=== PATIENT | female | born 1960 | race Caucasian/White ===

== ENCOUNTER 2017-11-14 02:56 | Inpatient (IN) | payer BC ==
[2017-11-14] MEDS ORDERED: FAMOTIDINE 20 MG/50 ML IVPB 20 MG/50 ML MG IVPB ONE ×2 (03:10→03:27)
[2017-11-14] MEDS ORDERED: MAG HYDROX/AL HYDROX/SIMETH 30 ML UNIT-DOSE CUP PO ONE (03:19)
[2017-11-14] MEDS ORDERED: morphine CARPU-JECT 4 MG/1 ML DISP.SYRIN IVPUSH ONE ×3 (03:19→05:05)
[2017-11-14] MEDS ORDERED: SODIUM CHLORIDE 0.9% 500 ML INFUS.BAG IV ONE (03:19)
[2017-11-14] MEDS ORDERED: ONDANSETRON 4 MG/2 ML VIAL IVPUSH ONE (03:19)
[2017-11-14] MEDS ORDERED: MAG HYDROX/AL HYDROX/SIMETH 30 ML UNIT-DOSE CUP ONE (03:27)
[2017-11-14] MEDS ORDERED: ONDANSETRON 4 MG/2 ML VIAL ONE (03:27)
[2017-11-14] MEDS ORDERED: morphine SULFATE 4 MG/ML VIAL ONE ×2 (03:27→04:07)
--- NOTE | 2017-11-14 03:28 | PDOC ---
History of Present Illness - General Chief Complaint: Pain, Acute Stated Complaint: ABDOMINAL PAIN Time Seen by Provider: 11/14/17 03:10 History Source: Patient Exam Limitations: No Limitations - History of Present Illness Initial Comments: 11/14/17 03:21 57 YOF with h/o HTN presenting with acute onset of RUQ and epigastric abdominal crampy pain x 6 hours, beginning 8pm. a/w nausea and NBNB emesis; chronic loose brown nonbloody stools. +dizziness; no fevers or chills. similar symptoms previously x years; visited PMD last week with normal blood work. awaiting to see GI specialist for her abdominal pain. +PSH includes C sections and appy; + smoker; no drugs or ETOH. denies travel or food precipitants. 11/14/17 03:31 Past History - Past Medical History Allergies/Adverse Reactions: Allergies Allergy/AdvReac Type Severity Reaction Status Date / Time No Known Allergies Allergy Verified 11/14/17 03:00 Home Medications: Ambulatory Orders Metoprolol Tartrate [Lopressor -] 50 mg PO DAILY 11/14/17 COPD: No HTN: Yes - Surgical History Appendectomy: Yes - Suicide/Smoking/Psychosocial Hx Smoking History: Current every day smoker Have you smoked in the past 12 months: Yes Number of Cigarettes Smoked Daily: 5 Information on smoking cessation initiated: Yes 'Breaking Loose' booklet given: 11/14/17 Hx Alcohol Use: No Drug/Substance Use Hx: No Substance Use Type: None Review of Systems - Review of Systems Able to Perform ROS?: Yes Comments:: 11/14/17 03:28 GENERAL/CONSTITUTIONAL: No fever or chills. No weakness. no sweats. HEAD, EYES, EARS, NOSE AND THROAT: No sore throat or mouth pain. No difficulty swallowing.. CARDIOVASCULAR: No chest pain or palpitations, syncope or edema. RESPIRATORY: No SOB, cough GASTROINTESTINAL + abdominal pain, diarrhea nausea/vomiting.. No bloody stools. GENITOURINARY: No hematuria, dysuria, frequency, urgency or other changes. MUSCULOSKELETAL: No joint or muscle swelling or pain. No neck or back pain. SKIN: No rash or changes in skin color or lesions. NEUROLOGIC: No headache HEMATOLOGIC/LYMPHATIC: No anemia, easy bruising/bleeding, or history of blood clots. ALLERGIC/IMMUNOLOGIC: No allergies All other systems reviewed and negative, or as documented in HPI. *Physical Exam - Vital Signs Last Vital Signs Temp Pulse Resp BP Pulse Ox 98.9 F 94 H 16 170/105 99 11/14/17 03:02 11/14/17 03:02 11/14/17 03:02 11/14/17 03:02 11/14/17 03:02 - Physical Exam Comments: 11/14/17 03:28 General: Well appearing, awake and alert, mild distress 2/2 pain HEENT: NCAT, PERRL, EOMI, clear conjunctiva, anicteric, moist mucus membranes, clear oropharynx Neck: neck supple, FROM, no JVD, LAD or masses Lungs: CTAB, normal and even respirations, no respiratory distress Heart: RRR, 2+ peripheral pulses throughout, no peripheral edema Abdomen: soft, obese, lower abdominal surgical scars; +RUQ and epigastric TTP, nonperitoneal Back: nontender, normal inspection and ROM MSK: no edema, CALDERON x4, ROM intact. Neuro: alert Skin: warm and well perfused, cap refill <2 sec, normal color for ethnicity; no rash ED Treatment Course - LABORATORY CBC & Chemistry Diagram: 11/14/17 03:25 11/14/17 03:38 - RADIOLOGY Radiology Studies Ordered: Category Date Time Status GALLBLADDER US [US] Stat Ultrasound 11/14/17 03:20 Ordered Medical Decision Making - Medical Decision Making 11/14/17 05:46 DDx abdominal pain: GERD, PUD, esophageal spasm, pancreatitis, hepatitis, constipation, colitis, gastroenteritis, cholecystitis, symptomatic cholelithiasis, choledocholithiasis, hernia Vital signs reviewed, wnl. No fever. Plan: CBC, CMP, lipase; GI cocktail, pepcid, zofran, morphine, IVF; RUQ sono to r/o cholelithiasis vs cholecystitis. laboratory results and imaging reviewed, basic labs and lytes notable for leukocytosis 12.8K, UA unremarkable. RUQ sono: large gallstone at the neck, +GB wall thickening noted, sonographic and physical [place] present, highly suspicious for acute cholecysitits. With clinical exam and findings, admit for acute nabila, IV abx Zosyn and additional analgesia. 520AM: spoke with surgeon personal injury specialist, Dr Alcaraz, surgery consult in place. may need to be deferred to daytime team and OR booking. Admitted to Dr. Velazquez, hospitalist, NPO, abx, pain control and operative management. spoke with pt regarding admission and plan, in agreement, questions answered. 11/14/17 05:48 *DC/Admit/Observation/Transfer Diagnosis at time of Disposition: Acute cholecystitis - Discharge Dispostion Condition at time of disposition: Stable Decision to Admit order: Yes Decision to Admit order Date/Time: 11/14/17 520AM - Referrals Referrals: Minerva Olsen [Primary Care Provider] - - Patient Instructions - Post Discharge Activity
[2017-11-14 04:03] LABS: BASO % 0.3 % (0-2.0); EOS % 0.2 % (0-4.5); HEMATOCRIT 45.1 % (32.4-45.2); HEMOGLOBIN 15.4 GM/dL (10.7-15.3); LYMPH % 15.9 % (8-40); MCH 30.6 pg (25.7-33.7); MCHC 34.2 g/dl (32.0-36.0); MEAN CELL VOLUME 89.5 fl (80-96); MEAN PLT VOLUME 9.4 fl (7.5-11.1); NEUT % 79.6 % (42.8-82.8); PLATELET COUNT 282 K/MM3 (134-434); RBC 5.04 M/mm3 (3.60-5.2); RDW 13.8 % (11.6-15.6); WHITE BLOOD COUNT 12.8 K/mm3 (4.0-10.0)
[2017-11-14 04:07] LABS: URINE APPEARANCE CLEAR; URINE BILIRUBIN NEGATIVE (<2.0 mg/dL); URINE COLOR STRAW; URINE GLUCOSE (UA) NEGATIVE (NEGATIVE); URINE KETONE NEGATIVE (NEGATIVE); URINE NITRITE NEGATIVE (NEGATIVE); URINE PROTEIN NEGATIVE (NEGATIVE); URINE UROBILINOGEN NEGATIVE mg/dL (0.2-1.0)
[2017-11-14 04:11] LABS: URINE LEUK ESTERASE 2+ (NEGATIVE)
[2017-11-14 04:12] LABS: EPI CELLS RARE /HPF (FEW)
[2017-11-14 04:25] LABS: ALBUMIN 4.3 g/dl (3.4-5.0); ALK PHOS 106 U/L (45-117); ANION GAP 8 (8-16); BILIRUBIN,TOTAL 0.3 mg/dL (0.2-1.0); BLOOD UREA NITROGEN 9 mg/dL (7-18); CALCIUM 9.8 mg/dL (8.5-10.1); CHLORIDE 104 mmol/L (98-107); CO2 26 mmol/L (21-32); GLUCOSE,RANDOM 135 mg/dL (74-106); LIPASE 220 U/L (73-393); POTASSIUM 3.7 mmol/L (3.5-5.1); SGOT/AST 23 U/L (15-37); SGPT/ALT 31 U/L (12-78); SODIUM 138 mmol/L (136-145); TOT PROT 8.6 g/dl (6.4-8.2)
[2017-11-14] MEDS ORDERED: PIPERACILLIN/TAZOB 4.5 GM 4.5 GM in DEXTROSE 5%-WATER 100 ML IVPB ONE (04:58)
[2017-11-14] MEDS ORDERED: PIPERACILLIN/TAZOBACTAM 4.5 GM VIAL IVPB ONE (05:01)
[2017-11-14] MEDS ORDERED: HYDROmorphone HCL CARPU-JECT 1 MG/1 ML DISP.SYRIN IVPUSH ONE (05:12)
[2017-11-14] MEDS ORDERED: HYDROmorphone HCL CARPU-JECT 1 MG/1 ML DISP.SYRIN ONE (05:13)
[2017-11-14] MEDS ORDERED: morphine CARPU-JECT 2 MG/1 ML DISP.SYRIN IVPUSH PRN (05:23)
[2017-11-14] MEDS ORDERED: SODIUM CHLORIDE 1,000 ML IV SCH (05:30)
--- NOTE | 2017-11-14 07:45 | HP ---
CHIEF COMPLAINT: abdominal pain PCP: Dr Olsen HISTORY OF PRESENT ILLNESS: Patient is a 57 obese female, past medical history of asthma (exacerbated in the spring) and hypertension. Patient reports with intermittent in epigastric pain worsening after eating for the past several months. Patient reports yesterday, November 13 2017, evening she developed sharp epigastric pain with nausea and vomiting. Patient denies any fevers or chills. ER course was notable for: (1)chest x-ray, no acute pathology, no infilitrate, no effusion noted. 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 Smoking: few cigarettes occasionally Alcohol:social Drugs: occasional marijuana use Family History: noncontributory Allergies No Known Allergies Allergy (Verified 11/14/17 03:00) HOME MEDICATIONS: Home Medications Medication Instructions Recorded Metoprolol Tartrate [Lopressor -] 50 mg PO DAILY 11/14/17 REVIEW OF SYSTEMS CONSTITUTIONAL: present: malaise, loss of appetite, Absent: fever, chills, diaphoresis, generalized weakness, weight change HEENT: Absent: rhinorrhea, nasal congestion, throat pain, throat swelling, difficulty swallowing, mouth swelling, ear pain, eye pain, visual changes CARDIOVASCULAR: Absent: chest pain, syncope, palpitations, irregular heart rate, lightheadedness , peripheral edema RESPIRATORY: Absent: cough, shortness of breath, dyspnea with exertion, orthopnea, wheezing, stridor, hemoptysis GASTROINTESTINAL: present:abdominal pain, abdominal distension, nausea, vomiting, Absent: diarrhea, constipation, melena, hematochezia GENITOURINARY: Absent: dysuria, frequency, urgency, hesitancy, hematuria, flank pain, genital pain MUSCULOSKELETAL: Absent: myalgia, arthralgia, joint swelling, back pain, neck pain SKIN: Absent: rash, itching, pallor HEMATOLOGIC/IMMUNOLOGIC: Absent: easy bleeding, easy bruising, lymphadenopathy, frequent infections ENDOCRINE: Absent: unexplained weight gain, unexplained weight loss, heat intolerance, cold intolerance NEUROLOGIC: Absent: headache, focal weakness or paresthesias, dizziness, unsteady gait, seizure, mental status changes, bladder or bowel incontinence PSYCHIATRIC: Absent: anxiety, depression, suicidal or homicidal ideation, hallucinations. PHYSICAL EXAMINATION Vital Signs - 24 hr 11/14/17 11/14/17 11/14/17 03:02 04:16 06:00 Temperature 98.9 F Pulse Rate 94 H Pulse Rate [ 95 H Right Radial] Respiratory 16 16 Rate Blood Pressure 170/105 Blood Pressure 177/108 155/84 [Left Arm] O2 Sat by Pulse 99 98 Oximetry (%) GENERAL: Awake, alert, and fully oriented, in no acute distress. HEAD: Normal with no signs of trauma. EYES: Pupils equal, round and reactive to light, extraocular movements intact, sclera anicteric, conjunctiva clear. No lid lag. EARS, NOSE, THROAT: Ears normal, nares patent, oropharynx clear without exudates. Moist mucous membranes. NECK: Normal range of motion, supple without lymphadenopathy, JVD, or masses. LUNGS: Breath sounds equal, clear to auscultation bilaterally. No wheezes, and no crackles. No accessory muscle use. HEART: Regular rate and rhythm, normal S1 and S2 without murmur, rub or gallop. ABDOMEN: Soft, tenderness noted to the right upper quadrant upon deep palpation, not distended, normoactive bowel sounds, no guarding, no rebound, no masses. No hepatomegaly or splenomegaly. MUSCULOSKELETAL: Normal range of motion at all joints. No bony deformities or tenderness. No CVA tenderness. UPPER EXTREMITIES: 2+ pulses, warm, well-perfused. No cyanosis. No clubbing. No peripheral edema. LOWER EXTREMITIES: 2+ pulses, warm, well-perfused. No calf tenderness. No peripheral edema. NEUROLOGICAL: Cranial nerves II-XII intact. Normal speech. Normal gait. PSYCHIATRIC: Cooperative. Good eye contact. Appropriate mood and affect. SKIN: Warm, dry, normal turgor, no rashes or lesions noted, normal capillary refill. Laboratory Results - last 24 hr 11/14/17 11/14/17 11/14/17 03:25 03:38 03:45 WBC 12.8 H RBC 5.04 Hgb 15.4 H Hct 45.1 MCV 89.5 MCH 30.6 MCHC 34.2 RDW 13.8 Plt Count 282 MPV 9.4 Absolute Neuts (auto) 10.2 Neutrophils % 79.6 Lymphocytes % 15.9 Monocytes % 4.0 Eosinophils % 0.2 Basophils % 0.3 Nucleated RBC % 0 Sodium 138 Potassium 3.7 Chloride 104 Carbon Dioxide 26 Anion Gap 8 BUN 9 Creatinine 1.0 Creat Clearance w eGFR 56.75 Random Glucose 135 H Calcium 9.8 Total Bilirubin 0.3 AST 23 ALT 31 Alkaline Phosphatase 106 Total Protein 8.6 H Albumin 4.3 Lipase 220 Urine Color Straw Urine Appearance Clear Urine pH 5.0 Ur Specific [place] 1.005 Urine Protein Negative Urine Glucose (UA) Negative Urine Ketones Negative Urine Blood 1+ H Urine Nitrite Negative Urine Bilirubin Negative Urine Urobilinogen Negative Ur Leukocyte Esterase 2+ H Urine WBC (Auto) 9 Urine RBC (Auto) <1 Ur Epithelial Cells Rare ASSESSMENT/PLAN: 1) GI acute cholecystitis - abdomen Review Significant for Acute Calculus Cholecystitis, - leukocytosis noted, WBCs 12.8, no bandemia noted, patient afebrile, monitor WBC and fever curve. - strict monitoring of LFTs noted transaminitis noted amylase lipase WNL, trend liver enzymes - patient reports inadequate pain relief with morphine, will change to Dilaudid 1 mg IV piggyback every 6 hours - Continue Zosyn appreciate ID input for antibiotic approval - appreciate general surgeon input, Dr. Alcaraz 2) cardiovascular Hypertension - continue home dose Lopressor, blood pressure above ago, secondary to pain, close monitoring vital signs every 4 hours F/E/N - nothing by mouth---> IV fluids - replete electrolytes when necessary PPX - SCDs - OOB - Pepcid - hold chemical AC, mechanical AC only dispo: pt requires inpatient admission Visit type - Emergency Visit Emergency Visit: Yes ED Registration Date: 11/14/17 Care time: The patient presented to the Emergency Department on the above date and was hospitalized for further evaluation of their emergent condition. - New Patient This patient is new to me today: Yes Date on this admission: 11/15/17 - Critical Care Critical Care patient: No Hospitalist Screening - Colonoscopy Questionnaire Colonoscopy Questionnaire: Colonoscopy Questionnaire - Patient: 50 - 75 years old and never had a screening colonoscopy: Yes History of colon or rectal polyps, or CA: No History of IBD, Crohn's disease or UC: No History of abdominal radiation therapy as a child: No - Relative: 1 with colon or rectal CA, or polyps at age 60 or younger: No Colon or rectal CA diagnosed at age 45 or younger: No Multiple relatives with colon or rectal CA: No - Outcome: Screening Result: Positive Screen
[2017-11-14] MEDS: ONDANSETRON 4 MG/2 ML VIAL IVPUSH PRN ×2 (08:11→13:45)
[2017-11-14] MEDS: HYDROmorphone HCL CARPU-JECT 2 MG/1 ML DISP.SYRIN IVPB PRN ×3 (08:11→21:22)
[2017-11-14 08:15] LABS: ACTIVATED PTT 29.8 SECONDS (25.2-36.5)
[2017-11-14 08:35] LABS: INR 1.08 (0.82-1.09); PROTHROMBIN TIME (PATIENT) 12.1 SEC (10.2-13.0)
[2017-11-14] MEDS ORDERED: ACETAMINOPHEN 325 MG TABLET (FP) PO PRN (08:51)
[2017-11-14 09:07] VITALS: BMI 30.5
[2017-11-14] MEDS ORDERED: HEPARIN NA (PORCINE) 5,000 UNITS/ML 1ML VIAL SQ SCH (10:00)
[2017-11-14] MEDS ORDERED: PIPERACILLIN/TAZOB 3.375 GM 3.375 GM/50 ML BAG IVPB SCH ×3 (10:00)
[2017-11-14] MEDS: SODIUM CHLORIDE 0.9%/KCL 20 MEQ/1,000 ML INFUS.BAG IV SCH (10:01)
[2017-11-14] MEDS: FAMOTIDINE 20 MG/50 ML IVPB 20 MG/50 ML MG IVPB SCH ×2 (10:05→21:22)
[2017-11-14] MEDS: METOPROLOL TARTRATE 50 MG TABLET (FP) PO SCH (10:05)
--- NOTE | 2017-11-14 13:54 | SPA.PREOP ---
- PRE-OP NOTE Dx: Acute Cholecystitis Planned Procedure: Laprascopic cholecystectomy, possible open Surgeon: Jim Alcaraz Consent: To be obtained by surgeon risks, benefits and alternatives explained to patient and or health care proxy. Last Vital Signs Temp Pulse Resp BP Pulse Ox 98.1 F 92 H 18 145/74 98 11/14/17 09:40 11/14/17 09:40 11/14/17 09:40 11/14/17 09:40 11/14/17 06:16 Lab Results WBC 12.8 K/mm3 (4.0-10.0) H 11/14/17 03:25 RBC 5.04 M/mm3 (3.60-5.2) 11/14/17 03:25 Hgb 15.4 GM/dL (10.7-15.3) H 11/14/17 03:25 Hct 45.1 % (32.4-45.2) 11/14/17 03:25 MCV 89.5 fl (80-96) 11/14/17 03:25 MCHC 34.2 g/dl (32.0-36.0) 11/14/17 03:25 RDW 13.8 % (11.6-15.6) 11/14/17 03:25 Plt Count 282 K/MM3 (134-434) 11/14/17 03:25 Sodium 138 mmol/L (136-145) 11/14/17 03:38 Potassium 3.7 mmol/L (3.5-5.1) 11/14/17 03:38 Chloride 104 mmol/L (98-107) 11/14/17 03:38 Carbon Dioxide 26 mmol/L (21-32) 11/14/17 03:38 Anion Gap 8 (8-16) 11/14/17 03:38 BUN 9 mg/dL (7-18) 11/14/17 03:38 Creatinine 1.0 mg/dL (0.55-1.02) 11/14/17 03:38 Random Glucose 135 mg/dL (74-106) H 11/14/17 03:38 Calcium 9.8 mg/dL (8.5-10.1) 11/14/17 03:38 Blood Type O POSITIVE 11/14/17 07:40 Antibody Screen Negative 11/14/17 07:25 INR 1.08 (0.82-1.09) 11/14/17 07:25 - ASSESSMENT/PLAN Problem List - Problems (1) Acute cholecystitis Assessment/Plan: 1. NPO after midnight except po meds 2. GI/DVT PPX 3. Medical optimization / clearance Code(s): K81.0 - ACUTE CHOLECYSTITIS Visit type - Case Type Case Type: ED Admission - Emergency Emergency Visit: Yes ED Registration Date: 11/14/17 Care time: The patient presented to the Emergency Department on the above date and was hospitalized for further evaluation of their emergent condition.
--- NOTE | 2017-11-14 16:06 | CONSULT ---
- Consultation REQUESTING PROVIDER: CONSULT REQUEST: We have been asked to surgically evaluate this patient for epigastric/RUQ pain. PCP:Ashleigh Ruiz HISTORY OF PRESENT ILLNESS: The patient is a 57 yo female who presented yesterday for epigastric/RUQ pain. She has had similar symptoms in the past but this time the pain didn't improve. The patient was scheduled today to be seen for this problem, she has been experiencing symptoms for several months. She had some associated nausea and non-bloody emesis. Her nausea and pain have improved since admission. PMHx: HTN, enlarged heart with intermittent palpitations PSHx: appendectomy/ c section x2 Home Medications Medication Instructions Recorded Metoprolol Tartrate [Lopressor -] 50 mg PO DAILY 11/14/17 Allergies Allergy/AdvReac Type Severity Reaction Status Date / Time No Known Allergies Allergy Verified 11/14/17 03:00 REVIEW OF SYSTEMS: CONSTITUTIONAL: Absent: fever, chills CARDIOVASCULAR: Absent: chest pain, palpitations RESPIRATORY: Absent: cough, shortness of breath GASTROINTESTINAL: Present: abdominal pain, nausea, vomiting, diarrhea (non-bloody) GENITOURINARY: Absent: dysuria, hematuria MUSCULOSKELETAL: present: bilateral knee pain(had cortisone shots in the past) HEMATOLOGIC/IMMUNOLOGIC: Absent: easy bleeding, easy bruising NEUROLOGIC: Present: Sinus headache, seizure PHYSICAL EXAM: GENERAL: Awake, alert, and fully oriented, in no acute distress. HEAD: Normal with no signs of trauma. EYES: sclera anicteric, conjunctiva clear. NECK: Normal ROM, supple without lymphadenopathy LUNGS: Clear to auscultation bilat anteriorly. No wheezes, and no crackles. HEART: Regular rate and rhythm. No murmurs ABDOMEN: Soft, not distended, epigastric/RUQ tenderness with palpation. No murphys, no guarding. LOWER EXTREMITIES: 2+ pulses, warm, well-perfused. No calf tenderness. No peripheral edema. NEUROLOGICAL: Normal speech, gait not observed. 5/5 dorsiflexion/plantar flexion /EHL b/l PSYCH: Cooperative. Good eye contact. Appropriate mood and affect. Vital Signs Temperature 98.2 F 11/14/17 14:00 Pulse Rate 67 11/14/17 14:00 Respiratory Rate 18 11/14/17 14:00 Blood Pressure 153/76 11/14/17 14:00 O2 Sat by Pulse Oximetry (%) 98 11/14/17 06:16 Lab Results WBC 12.8 K/mm3 (4.0-10.0) H 11/14/17 03:25 RBC 5.04 M/mm3 (3.60-5.2) 11/14/17 03:25 Hgb 15.4 GM/dL (10.7-15.3) H 11/14/17 03:25 Hct 45.1 % (32.4-45.2) 11/14/17 03:25 MCV 89.5 fl (80-96) 11/14/17 03:25 MCHC 34.2 g/dl (32.0-36.0) 11/14/17 03:25 RDW 13.8 % (11.6-15.6) 11/14/17 03:25 Plt Count 282 K/MM3 (134-434) 11/14/17 03:25 Sodium 138 mmol/L (136-145) 11/14/17 03:38 Potassium 3.7 mmol/L (3.5-5.1) 11/14/17 03:38 Chloride 104 mmol/L (98-107) 11/14/17 03:38 Carbon Dioxide 26 mmol/L (21-32) 11/14/17 03:38 Anion Gap 8 (8-16) 11/14/17 03:38 BUN 9 mg/dL (7-18) 11/14/17 03:38 Creatinine 1.0 mg/dL (0.55-1.02) 11/14/17 03:38 Random Glucose 135 mg/dL (74-106) H 11/14/17 03:38 Calcium 9.8 mg/dL (8.5-10.1) 11/14/17 03:38 Blood Type O POSITIVE 11/14/17 07:40 Antibody Screen Negative 11/14/17 07:25 INR 1.08 (0.82-1.09) 11/14/17 07:25 US: gallstone with GB wall thickening. CBD 0.6cm Problem List - Problems (1) Acute cholecystitis Assessment/Plan: Pt with acute cholecystitis-gallstones D/w Dr. Alcaraz and pt scheduled for a lap nabila tomorrow Medical clearance Continue npo/iv hydraton. Pt with nausea IV abx-Zosyn Code(s): K81.0 - ACUTE CHOLECYSTITIS
[2017-11-14] MEDS: PIPERACILLIN/TAZOB 3.375 GM 3.375 GM/50 ML BAG IVPB SCH (17:16)
--- NOTE | 2017-11-14 18:48 | PN ---
Progress Note (short form) - Note Progress Note: Attending Surgeon Patient seen and evaluated; chart reviewed; agree w/ a/p as outlined by JARET Nguyen; for lap nabila possible open in AM; r/b/t/a/'s d/w the patient who wishes to proceed; ifomed consent to be obtained. Jim Alcaraz MD FACS
--- NOTE | 2017-11-14 18:56 | PN ---
Progress Note (short form) - Note Progress Note: ID Consult dictated Acute cholecystitis Leukocytosis Await c/s Empiric zosyn For cholecystectomy am
[2017-11-15] MEDS: PIPERACILLIN/TAZOB 3.375 GM 3.375 GM/50 ML BAG IVPB SCH ×2 (02:14→11:40)
[2017-11-15] MEDS ORDERED: BUPIVACAINE HCL/PF 0.5% (5MG/ML) 10 ML VIAL ONE ×2 (07:19→07:56)
--- NOTE | 2017-11-15 07:19 | CONS ---
DATE OF CONSULTATION: 11/14/2017 HISTORY OF PRESENT ILLNESS: The patient is a 57-year-old female who was evaluated for abdominal pain. She was admitted to the hospital on November 13, 2017 with worsening epigastric and right upper quadrant abdominal pain. She reports that over the past 1 month or so, she has had episodes of right upper quadrant and epigastric pain, which resolved spontaneously. This time, however, the pain became more severe and was associated with nausea and vomiting. She presented to the hospital where an ultrasound showed a 2.7-cm gallstone at the gallbladder neck with thickened gallbladder wall. She was empirically treated with Zosyn. She was seen in consultation by Surgery and is scheduled to have a laparoscopic cholecystectomy. At the present time, she is comfortable at rest. She has episodic epigastric and right upper quadrant abdominal pain. She denies any recurrent nausea or vomiting. No fever or chills. Her last bowel movement was 1 day prior to admission. PAST MEDICAL HISTORY: Positive for hypertension, asthma. PAST SURGICAL HISTORY: Status post section, appendectomy. ALLERGIES: No known allergies. MEDICATIONS: Pepcid, Lopressor. SOCIAL HISTORY: Positive for active tobacco use. No history of alcohol abuse or illicit drug use. HIV status not known. SYSTEMS REVIEW: Neurologic: No loss of consciousness, seizure activity, or focal weakness. Cardiac: Negative for chest pain or palpitations. Respiratory: Negative for cough or sputum production. Gastrointestinal: As per HPI. Genitourinary: Negative for urinary tract infection. LABORATORY DATA: White count 12.8, hematocrit 45.1, platelet count 282. Creatinine 1.0. Chest x-ray negative. Urinalysis 9 white cells. PHYSICAL EXAMINATION: General: She is awake and alert. She is in no acute distress at rest. Supine in bed. Vital signs: Temperature 98.2, blood pressure 153/76, pulse 67 and regular, respirations 18 per minute. HEENT: Sclerae anicteric. Heart: Heart sounds S1, S2. Lungs: Clear. Abdomen: Soft. Positive epigastric and right upper quadrant tenderness to palpation. No mass, rebound, or rigidity. Extremities: Negative for edema. IMPRESSION: 1. Acute cholecystitis. 2. Leukocytosis, rule out sepsis secondary to biliary tract focus. Await cultures, empiric antibiotic coverage of biliary tract pathogens with Zosyn for cholecystectomy in a.m. Will follow. Thank you for the kind referral. LISA PLUNKETT M.D. [id number]
[2017-11-15] MEDS ORDERED: PROPOFOL 20 ML ONE ×2 (07:25)
[2017-11-15] MEDS ORDERED: ONDANSETRON 4 MG/2 ML VIAL ONE ×2 (07:25→09:59)
[2017-11-15] MEDS ORDERED: DEXAMETHASONE SOD PHOSPHATE 4 MG/1 ML VIAL ONE (07:25)
[2017-11-15] MEDS ORDERED: ceFAZolin SODIUM 1 GM VIAL ONE (07:25)
[2017-11-15] MEDS ORDERED: fentaNYL CITRATE 250 MCG/5 ML VIAL ONE (07:25)
[2017-11-15] MEDS ORDERED: ROCURONIUM BROMIDE 50 MG/5 ML VIAL ONE (07:26)
[2017-11-15] MEDS ORDERED: MIDAZOLAM HCL 2 MG/2 ML SINGLE DOSE VIAL ONE (07:26)
[2017-11-15] MEDS ORDERED: SUCCINYLCHOLINE CHLORIDE 200 MG/10 ML VIAL ONE (07:26)
[2017-11-15] MEDS ORDERED: BENZOIN/ALOE VERA/STORAX/TOLU 58 ML BOTTLE ONE (07:56)
--- NOTE | 2017-11-15 08:01 | PN ---
Physical Exam: SUBJECTIVE: Patient seen and examined, patient is as/P lap cholecystectomy, reports feeling well tolerating clear liquid tray, ex- and friend at bedside OBJECTIVE:Patient is a 57 obese female, past medical history of asthma ( exacerbated in the spring) and hypertension. Vital Signs Period Temp Pulse Resp BP Sys/Mojica Pulse Ox Last 24 Hr 98.1 F-99.1 F 67-92 18-18 100-153/61-76 97-98 GENERAL: The patient is awake, alert, and fully oriented, in no acute distress. HEAD: Normal with no signs of trauma. EYES: PERRL, extraocular movements intact, sclera anicteric, conjunctiva clear. No ptosis. ENT: Ears normal, nares patent, oropharynx clear without exudates, moist mucous membranes. NECK: Trachea midline, full range of motion, supple. LUNGS: Breath sounds equal, clear to auscultation bilaterally, no wheezes, no crackles, no accessory muscle use. HEART: Regular rate and rhythm, S1, S2 without murmur, rub or gallop. ABDOMEN: Soft, tenderness to laparoscopic sites, hypoactive bowel sounds, no guarding, no rebound, no hepatosplenomegaly, no masses. EXTREMITIES: 2+ pulses, warm, well-perfused, no edema. NEUROLOGICAL: Cranial nerves II through XII grossly intact. Normal speech, gait not observed. PSYCH: Normal mood, normal affect. SKIN: Warm, dry, normal turgor, no rashes or lesions noted Laboratory Results - last 24 hr 11/14/17 11/14/17 11/14/17 07:25 07:25 07:40 PT with INR 12.1 INR 1.08 PTT (Actin FS) 29.8 Blood Type O POSITIVE O POSITIVE Antibody Screen Negative Active Medications Generic Name Dose Route Start Last Admin Trade Name Freq PRN Reason Stop Dose Admin Acetaminophen 650 mg 11/14/17 08:51 Tylenol - PO Q4H PRN PAIN LEVEL 1-5 Hydromorphone HCl 1 mg 11/14/17 07:47 11/14/17 21:22 Dilaudid Injection - IVPB 1 mg Q6H PRN Administration PAIN LEVEL 7 - 10 Famotidine/Sodium Chloride 20 mg in 50 mls @ 100 mls/hr 11/14/17 10:00 21:22 Pepcid 20 Mg Premixed Ivpb - IVPB 100 mls/hr BID CHEY Administration Potassium Chloride/Sodium Chloride 20 meq in 1,000 mls @ 100 mls/hr 11/14/17 08:45 11/14/17 10:01 Ns+20 Meq Kcl - IV 100 mls/hr ASDIR CHEY Administration Piperacillin Sod/Tazobactam Sod 3.375 gm in 50 mls @ 100 mls/hr 11/14/17 18: 00 11/15/17 02:14 Zosyn 3.375gm Ivpb (Pre-Docked) IVPB 100 mls/hr Q8H-IV CHEY Administration Protocol Metoprolol Tartrate 50 mg 11/14/17 10:00 11/14/17 10:05 Lopressor - PO 50 mg DAILY CHEY Administration Ondansetron HCl 4 mg 11/14/17 07:54 11/14/17 13:45 Zofran Injection IVPUSH 4 mg Q8H PRN Administration NAUSEA Microbiology 11/14/17 11:36 Blood - Peripheral Venous Blood Culture - Preliminary NO GROWTH OBTAINED AFTER 24 HOURS, INCUBATION TO CONTINUE FOR 4 DAYS. 11/14/17 11:30 Blood - Peripheral Venous Blood Culture - Preliminary NO GROWTH OBTAINED AFTER 24 HOURS, INCUBATION TO CONTINUE FOR 4 DAYS. 11/14/17 09:00 Urine - Urine Clean Catch Urine Culture - Final NO GROWTH OBTAINED imaging ultrasound of gallbladder approximately 2.7 cm calculus, acute calculus, cholecystitis ASSESSMENT/PLAN: 1) GI acute cholecystitis S/P cholecystectomy (lap, POD #0) - clear liquid diet will advance as tolerated - Repeat CBC CMP tomorrow morning - d/c abx as per surgery - When necessary pain medication and incentive spirometer 2) cardiovascular Hypertension - continue home dose Lopressor, blood pressure at goal - close monitoring vital signs every 4 hours F/E/N - clear liquid diet - replete electrolytes when necessary PPX - SCDs - OOB - Pepcid - hold chemical AC, mechanical AC only * Discussed plan with ex- and best friend both verbalized understanding and all questions answered* dispo: pt requires inpatient admission
[2017-11-15] MEDS ORDERED: ePHEDrine SULFATE 50 MG/1 ML AMPULE ONE (08:12)
[2017-11-15] MEDS ORDERED: PHENYLEPHRINE HCL 10 MG/1 ML SINGLE DOSE VIAL ONE (08:25)
[2017-11-15] MEDS ORDERED: NEOSTIGMINE METHYLSULFATE 0.5 MG/ML - 10 ML MDV ONE (09:20)
[2017-11-15] MEDS ORDERED: GLYCOPYRROLATE 0.2 MG/1 ML VIAL ONE (09:20)
[2017-11-15] MEDS ORDERED: KETOROLAC TROMETHAMINE 30 MG/1 ML VIAL ONE ×2 (09:28)
[2017-11-15] MEDS ORDERED: oxyCODONE HCL 5 MG TABLET PO PRN ×2 (09:54→09:55)
--- NOTE | 2017-11-15 09:58 | OP ---
Operative Note - Note: Operative Date: 11/15/17 Pre-Operative Diagnosis: gallstone, acute cholecystitis Operation: laprascopic cholecystectomy Surgeon: Jim Alcaraz Marketing Sales Manager: Marcia Nguyen Anesthesia: General Estimated Blood Loss (mls): 20 Fluid Volume Replaced (mls): 1,200 Operative Report Dictated: Yes
--- NOTE | 2017-11-15 09:59 | SURG ---
Surgery Marketing Development Representative Note Marketing Development Representative: Marcia Nguyen PA-C Date of Service: 11/15/17 Diagnosis: gallstone, acute cholecystitis Procedure: laparoscopic cholecystectomy I was present for the entirety of the operative procedure. For further detail, please refer to operative report. Visit type - Case Type Case Type: ED Admission - Emergency Emergency Visit: Yes ED Registration Date: 11/14/17 Care time: The patient presented to the Emergency Department on the above date and was hospitalized for further evaluation of their emergent condition. - New patient This patient is new to me today: Yes Date on this admission: 11/15/17
[2017-11-15] MEDS ORDERED: LACTATED RINGERS SOLUTION 1,000 ML IV SCH (10:00)
[2017-11-15] MEDS: HEPARIN NA (PORCINE) 5,000 UNITS/ML 1ML VIAL SQ SCH ×2 (10:30→21:52)
[2017-11-15] MEDS ORDERED: HEPARIN NA (PORCINE) 5,000 UNITS/ML 1ML VIAL ONE (10:35)
[2017-11-15] MEDS ORDERED: FAMOTIDINE 20 MG/50 ML IVPB 20 MG/50 ML MG IVPB ONE (10:35)
[2017-11-15] MEDS ORDERED: FAMOTIDINE 20 MG PREMIXED IVPB IVPB ONE (10:40)
[2017-11-15] MEDS: FAMOTIDINE 20 MG/50 ML IVPB 20 MG/50 ML MG IVPB SCH (11:40)
[2017-11-15] MEDS: SODIUM CHLORIDE 0.9%/KCL 20 MEQ/1,000 ML INFUS.BAG IV SCH (11:40)
[2017-11-15] MEDS: METOPROLOL TARTRATE 50 MG TABLET (FP) PO SCH (12:03)
--- NOTE | 2017-11-15 13:57 | EKG ---
Test Reason : Blood Pressure : / mmHG Vent. Rate : 076 BPM Atrial Rate : 076 BPM P-R Int : 172 ms QRS Dur : 142 ms QT Int : 430 ms P-R-T Axes : 058 006 017 degrees QTc Int : 483 ms POOR DATA QUALITY, INTERPRETATION MAY BE ADVERSELY AFFECTED NORMAL SINUS RHYTHM WITH SINUS ARRHYTHMIA RIGHT BUNDLE BRANCH BLOCK ABNORMAL ECG NO PREVIOUS ECGS AVAILABLE Confirmed by Patricio Walton MD ([id number]) on 11/15/2017 1:56:44 PM Referred By: MD LOAIZA Confirmed By:Patricio Walton MD
--- NOTE | 2017-11-15 14:04 | OP ---
DATE OF OPERATION: 11/15/2017 PREOPERATIVE DIAGNOSIS: Acute cholecystitis, cholelithiasis. POSTOPERATIVE DIAGNOSIS: Acute cholecystitis, cholelithiasis. PROCEDURE: Laparoscopic cholecystectomy. SURGEON: Jim Alcaraz MD UMBRELLA FINISHER: Marcia Nguyen PA-C ANESTHESIA: General. OPERATIVE FINDINGS: Acute cholecystitis and cholelithiasis. The rest of the findings were unremarkable. DESCRIPTION OF PROCEDURE: The patient was placed on the operating room table in supine position. After the induction of general anesthesia, the patient's abdomen was prepped with ChloraPrep and draped in sterile fashion. Time-out was taken and then pneumoperitoneum established above the umbilicus using a Veress needle. Once 15 mm of intra-abdominal pressure was obtained, a 5-mm port was placed at the umbilicus. Additional lateral 5-mm ports and a subxiphoid 12-mm port were placed and laparoscopy carried out, and the previously noted findings were observed. The gallbladder was placed on cephalad and lateral traction, and dissection was begun at the neck of the gallbladder where the peritoneum was opened medially and laterally using blunt and sharp dissection and electrocautery. Dissection continued in the triangle of Calot where the cystic duct was identified coursing from the neck of the gallbladder distally to the common bile duct. It was dissected proximally and distally for length. Similarly, the artery was similarly identified and dissected. A critical view of safety was taken, and then the cystic duct divided proximally and distally using Endo Naldo after it was clipped twice proximally and distally with large hemoclips. The artery was similarly clipped and divided. Hemostasis was checked for and noted to be good and then the gallbladder was removed from the liver bed in a retrograde fashion using electrocautery. Prior to removal from the edge of the liver, hemostasis was again verified and then the gallbladder removed from the edge of the liver, placed in an EndoCatch, and brought out through the subxiphoid port. Pneumoperitoneum was reestablished, hemostasis verified again, and then the 5-mm lateral and subxiphoid ports were removed under laparoscopic vision without evidence of bleeding from the port sites. The umbilical port was removed and the pneumoperitoneum evacuated. All port sites were infiltrated with 0.5% Marcaine and the skin edges closed with 4-0 Biosyn in a subcuticular and continuous fashion. Steri-Strips and Band-Aid dressings were placed and the procedure terminated at this point and the patient aroused from general anesthesia and transferred to the post anesthesia care unit in stable condition awake and alert. ESTIMATED BLOOD LOSS: 20 mL. REPLACEMENTS: Crystalloid, 1200 mL. SPECIMENS: Gallbladder and contents to pathology. I, Jim Alcaraz, was physically present in the operating room from the time the patient was placed on the operating room table until she was transferred to the post anesthesia care unit in my company. MD FAHEEM [id number] MTDD
[2017-11-15 15:05] LABS: ALBUMIN 3.7 g/dl (3.5-5.0); ALK PHOS 65 U/L (32-92); AMYLASE 82 U/L (25-125); BILIRUBIN,TOTAL 0.5 mg/dl (0.2-1.0); MAGNESIUM 1.9 mg/dL (1.8-2.4); PHOSPHOROUS 2.1 mg/dl (2.5-4.6); SGOT/AST 30 U/L (10-42); SGPT/ALT 23 U/L (10-40); TOT PROT 7.2 g/dl (6.4-8.3)
[2017-11-15 17:31] LABS: ANION GAP 13 (8-16); BLOOD UREA NITROGEN 7 mg/dL (7-18); CALCIUM 8.9 mg/dL (8.5-10.1); CHLORIDE 106 mmol/L (98-107); CO2 22 mmol/L (21-32); CREATININE 1.1 mg/dL (0.55-1.02); GLUCOSE,RANDOM 147 mg/dL (74-106); POTASSIUM 3.9 mmol/L (3.5-5.1); SODIUM 141 mmol/L (136-145)
[2017-11-15 17:40] LABS: LIPASE 191 U/L (73-393)
[2017-11-15] MEDS: FAMOTIDINE 20 MG TABLET PO SCH (21:52)
[2017-11-16 05:15] VITALS: BP 132/60; PULSE 66; TEMP 98.4
--- NOTE | 2017-11-16 07:32 | PN ---
Progress Note (short form) - Note Progress Note: POD #1 Alert. Laying in position of comfort. No acute events since surgery per RN notes. She's been OOB and ambulating unassisted. Tolerating clears. Using incentive spirometer as directed. Denies n/v/f/c, CP or SOB. Last Vital Signs Temp Pulse Resp BP Pulse Ox 98.4 F 66 18 132/60 96 11/16/17 05:14 11/16/17 05:14 11/16/17 05:14 11/16/17 05:14 11/16/17 05:15 Gen: nad Abd: all surgical ports intact. no hematoma LE: soft, nt bilat Problem List - Problems (1) Acute cholecystitis Assessment/Plan: POD #1 s/p lap nabila (cholelithiasis, cholecystitis) Regular diet Incentive spirometer Script for pain management escribed Wound care and f/u outlined in dc plan Cleared for dc from surgery On behalf of Dr. Alcaraz, thank you for the opportunity to participate in your patient's care. Code(s): K81.0 - ACUTE CHOLECYSTITIS
--- NOTE | 2017-11-16 08:14 | DS ---
Physical Exam: SUBJECTIVE: Patient seen and examined, patient able to return nurses station tolerating regular diet denies any tactile fevers OBJECTIVE:Patient is a 57 obese female, past medical history of asthma ( exacerbated in the spring) and hypertension. Patient reports with intermittent in epigastric pain worsening after eating for the past several months. Patient reports yesterday, November 13 2017, evening she developed sharp epigastric pain with nausea and vomiting. Patient denies any fevers or chills. ER course was notable for: (1)chest x-ray, no acute pathology, no infilitrate, no effusion noted. 2)EKG, sinus rhythm right bundle branch (3)ultrasound of gallbladder approximately 2.7 cm calculus, acute calculus, cholecystitis Vital Signs Period Temp Pulse Resp BP Sys/Mojica Pulse Ox Last 24 Hr 98.2 F-98.9 F 66-96 16-20 117-160/60-87 95-99 PHYSICAL EXAM GENERAL: The patient is awake, alert, and fully oriented, in no acute distress. HEAD: Normal with no signs of trauma. EYES: PERRL, extraocular movements intact, sclera anicteric, conjunctiva clear. ENT: Ears normal, nares patent, oropharynx clear without exudates, moist mucous membranes. NECK: Trachea midline, full range of motion, supple. LUNGS: Breath sounds equal, clear to auscultation bilaterally, no wheezes, no crackles, no accessory muscle use. HEART: Regular rate and rhythm, S1, S2 without murmur, rub or gallop. ABDOMEN: laparoscopic sites, clean and dry, with tenderenss, soft, nondistended , normoactive bowel sounds, no guarding, no rebound, no hepatosplenomegaly, no masses. EXTREMITIES: 2+ pulses, warm, well-perfused, no edema. NEUROLOGICAL: Cranial nerves II through XII grossly intact. Normal speech, gait not observed. PSYCH: Normal mood, normal affect. SKIN: Warm, dry, normal turgor, no rashes or lesions noted. LABS Laboratory Results - last 24 hr 11/15/17 11/15/17 14:44 14:44 Sodium 141 Potassium 3.9 Chloride 106 Carbon Dioxide 22 Anion Gap 13 BUN 7 Creatinine 1.1 H Creat Clearance w eGFR 50.84 Random Glucose 147 H Calcium 8.9 Phosphorus 2.1 L Magnesium 1.9 Total Bilirubin 0.5 AST 30 ALT 23 Alkaline Phosphatase 65 Total Protein 7.2 Albumin 3.7 Total Amylase 82 Lipase 191 Microbiology 11/14/17 11:36 Blood - Peripheral Venous Blood Culture - Preliminary NO GROWTH OBTAINED AFTER 24 HOURS, INCUBATION TO CONTINUE FOR 4 DAYS. 11/14/17 11:30 Blood - Peripheral Venous Blood Culture - Preliminary NO GROWTH OBTAINED AFTER 24 HOURS, INCUBATION TO CONTINUE FOR 4 DAYS. 11/14/17 09:00 Urine - Urine Clean Catch Urine Culture - Final NO GROWTH OBTAINED imaging ultrasound of gallbladder approximately 2.7 cm calculus, acute calculus, cholecystitis HOSPITAL COURSE: 1)acute cholecystitis and S/P cholecystectomy (lap, POD #1) - tolerating diet (regular) - pre-op zosyn given - pain managed with both narcotic and non-narcotic medications. 2)Hypertension - continue home dose Lopressor, blood pressure at goal PLAN: - discharged home with strict follow-up with Dr Alcaraz - return precautions reviewed i.e. fever sharp abdominal pain chest pain shortness of breath, patient advised return to the emergency department all questions answered patient verbalized understanding Date of Admission:11/14/17 Date of Discharge: 11/16/17 Discharge Summary Reason For Visit: ABDOMINAL PAIN Current Active Problems Acute cholecystitis (Acute) Condition: Stable - Instructions Diet, Activity, Other Instructions: Dr. Alcaraz's Discharge Instructions Physical activity Resume your normal everyday activity as tolerated no heavy lifting or exercise until seen by your surgeon. You may walk unlimited amounts of and climb stairs. You may resume driving the car when you feel safe and comfortable behind the wheel. Wound care If you have a bandage, leave it on, and keep dry for 48 - 72 hours. After that time discard the outer bandage. If there are tapes on the skin under the outer bandage, leave them in place. They will peel off in the next 7 to 10 days. Do Not peel them off. You may shower 2 days after surgery. If there are tapes present on the skin, they can get wet. Diet There are no dietary restrictions. Eat healthy, high-fiber foods. Drink 6 to 8 glasses of liquid each day. This will assist in keeping your bowels are regular. Pain management You may take Tylenol or acetaminophen or Ibuprofen (for example, Motrin, Advil etc.) Any pain prescription medication ordered should be taken as prescribed for moderate to severe pain. Call Dr. Alcaraz for any of the following: Severe pain not relieved by medication Fever of 101 or higher Excessive bleeding or drainage on dressing Inability to urinate Call the office at [phone] for a post operative appointment in 7 - 10 days. Referrals: Jim Alcaraz MD [Staff Physician] - Minerva Olsen [Primary Care Provider] - Disposition: HOME - Home Medications Comprehensive Discharge Medication List: Ambulatory Orders Metoprolol Tartrate [Lopressor -] 50 mg PO DAILY 11/14/17 Tramadol HCl 50 mg PO Q6H PRN #30 tablet MDD 4 11/16/17
[2017-11-16 08:19] LABS: BASO % 0.1 % (0-2.0); EOS % 0.2 % (0-4.5); HEMATOCRIT 39.3 % (32.4-45.2); HEMOGLOBIN 13.8 GM/dl (10.7-15.3); LYMPH % 26.9 % (8-40); MCH 31.9 pg (25.7-33.7); MCHC 35.2 g/dl (32.0-36.0); MEAN CELL VOLUME 90.6 fl (80-96); MEAN PLT VOLUME 8.7 fl (7.5-11.1); MONO % 7.9 % (3.8-10.2); NEUT % 64.9 % (42.8-82.8); PLATELET COUNT 242 K/MM3 (134-434); RBC 4.34 M/mm3 (3.60-5.2)
[2017-11-16 09:02] LABS: ALBUMIN 3.4 g/dl (3.5-5.0); ALK PHOS 57 U/L (32-92); ANION GAP 6 (8-16); BILIRUBIN,TOTAL 0.5 mg/dl (0.2-1.0); BLOOD UREA NITROGEN 9 mg/dl (7-18); CALCIUM 8.9 mg/dl (8.4-10.2); CHLORIDE 104 mmol/L (98-107); CO2 27 mmol/L (22-28); CREATININE 0.9 mg/dl (0.6-1.3); GLUCOSE,RANDOM 79 mg/dl (74-106); PHOSPHOROUS 2.5 mg/dl (2.5-4.6); POTASSIUM 3.9 mmol/L (3.5-5.1); SGOT/AST 24 U/L (10-42); SGPT/ALT 20 U/L (10-40); SODIUM 137 mmol/L (136-145); TOT PROT 6.7 g/dl (6.4-8.3)
[2017-11-16] MEDS: METOPROLOL TARTRATE 50 MG TABLET (FP) PO SCH (09:30)
[2017-11-16] MEDS: FAMOTIDINE 20 MG TABLET PO SCH (09:30)
[2017-11-16] MEDS: HEPARIN NA (PORCINE) 5,000 UNITS/ML 1ML VIAL SQ SCH (09:30)
--- NOTE | 2017-11-16 11:07 | PN ---
Progress Note, Physician History of Present Illness: Post op day 1 laparoscopic cholecystectomy Doing well No c/o abdominal pain Afebrile WBC 13 - Current Medication List Current Medications: Active Medications Acetaminophen (Tylenol -) 650 mg PO Q4H PRN PRN Reason: PAIN LEVEL 1-5 Last Admin: 11/15/17 20:08 Dose: 650 mg Famotidine (Pepcid -) 20 mg PO BID [facility] Last Admin: 11/16/17 09:30 Dose: 20 mg Heparin Sodium (Porcine) (Heparin -) 5,000 unit SQ BID [facility] Last Admin: 11/16/17 09:30 Dose: 5,000 unit Metoprolol Tartrate (Lopressor -) 50 mg PO DAILY [facility] Last Admin: 11/16/17 09:30 Dose: 50 mg Ondansetron HCl (Zofran Injection) 4 mg IVPUSH Q8H PRN PRN Reason: NAUSEA Last Admin: 11/14/17 13:45 Dose: 4 mg Oxycodone HCl (Roxicodone -) 5 mg PO Q6H PRN PRN Reason: PAIN LEVEL 1-5 Oxycodone HCl (Roxicodone -) 10 mg PO Q6H PRN PRN Reason: PAIN LEVEL 6-10 - Objective Vital Signs: Vital Signs Temperature 98.4 F 11/16/17 05:14 Pulse Rate 66 11/16/17 05:14 Respiratory Rate 18 11/16/17 08:47 Blood Pressure 132/60 11/16/17 05:14 O2 Sat by Pulse Oximetry (%) 96 11/16/17 05:15 Constitutional: Yes: No Distress Eyes: Yes: Conjunctiva Clear Cardiovascular: Yes: Regular Rate and Rhythm, S1, S2 Respiratory: Yes: CTA Bilaterally Gastrointestinal: Yes: Normal Bowel Sounds, Soft, Tenderness, Other (mild diffuse post op tenderness) Edema: No Labs: CBC, BMP 11/16/17 07:30 11/16/17 07:30 INR, PTT INR 1.08 (0.82-1.09) 11/14/17 07:25 Assessment/Plan POD #1 laparoscopic cholecystectomy Substitute augmentin 875 mg po bid x 7d
--- NOTE | 2017-11-16 11:27 | PN ---
Progress Note (short form) - Note Progress Note: Anesthesia POSTOP 57 yo female POD#1 s/p lap nabila under GETA Patient sleeping comfortably upon arrival. She reports pain is adequately controlled. Tolerating PO. Ambulating. No nausea. VSS, Afebrile Encouraged IS and ambulation. Continue current care. No anesthetic complications
--- NOTE | 2017-11-17 15:24 | PATH ---
Surgical Pathology Report Patient Name: JÚNIOR CODY [facility]. Rec. #: [id number] /Age/Gender: 1960 (Age: 57) / F Account: [id number] Location: [facility] MED-SURG Taken: 11/15/2017 Received: 11/15/2017 Reported: 11/17/2017 Physicians: Akhil Velazquez MD Specimen(s) Received GALLBLADDER Clinical History Acute cholecystitis Final Diagnosis GALLBLADDER, CHOLECYSTECTOMY: ACUTE SUPERIMPOSED ON CHRONIC CHOLECYSTITIS. CHOLESTEROLOSIS AND CHOLELITHIASIS. Electronically Signed Camelia Salinas M.D. Gross Description Received in formalin, labeled "gallbladder," is a 9.0 x 3.3 x 3.0 cm. gallbladder with a 0.2 cm. in length portion of cystic duct attached. The outer surface is arvizu-pink with a focal defect and varies from smooth to shaggy. The lumen contains green, tenacious bile. There is a 2.5 cm in greatest dimension yellow, ovoid cholelith separately received within the same container. The mucosa is green-brown. The wall of the gallbladder ranges from 0.2-0.9 cm. in thickness. Motor Vehicle Sales[employer] sections are submitted in one cassette. 11/16/201711/16/2017
== END 2017-11-16 13:30 | disposition home or self-care (01) | DRG 419 ==
LOC: FER 02:56 → FM/S 05:44 → UNDOADMIN 06:16
PROVIDERS: ADMIT Internal Medicine; ATTEND Nurse Practitioner Family
PROC: 0FT44ZZ Resection of Gallbladder, Percutaneous Endoscopic Approach (ICD-10-PCS; principal; 2017-11-15 08:31)
DX: K80.00 Calculus of gallbladder with acute cholecystitis without obstruction (principal); E66.8 Other obesity; Z68.30 Body mass index [BMI] 30.0-30.9, adult; I45.10 Unspecified right bundle-branch block; F17.210 Nicotine dependence, cigarettes, uncomplicated; I10 Essential (primary) hypertension; D72.829 Elevated white blood cell count, unspecified; J45.909 Unspecified asthma, uncomplicated; F12.10 Cannabis abuse, uncomplicated
CPT/HCPCS: 36415; 71045-TC-FY; 76705-TC; 80048; 80053; 81003; 81015; 82150; 83690; 83735; 84100; 85025; 85610; 85730; 86850; 86900; 86901; 87040; 87086; 88304-TC; 93005; 94760; 99282-25; J1644; J7030

== ENCOUNTER 2023-12-10 01:33 | Emergency (ER) | payer OTHER, BC ==
[2023-12-10 01:45] VITALS: BP 170/84; PULSE 95; RESP 18; TEMP 98.9; BMI 29.0
[2023-12-10] MEDS ORDERED: KETOROLAC TROMETHAMINE 30 MG/1 ML VIAL ONE (01:55)
[2023-12-10] MEDS ORDERED: ONDANSETRON 4 MG/2 ML VIAL ONE ×2 (01:56→04:40)
[2023-12-10] MEDS: SODIUM CHLORIDE 1,000 ML IV ONE (02:11)
[2023-12-10] MEDS: KETOROLAC TROMETHAMINE 30 MG/1 ML VIAL IVPUSH ONE (02:12)
[2023-12-10] MEDS: ONDANSETRON 4 MG/2 ML VIAL IVPB ONE (02:12)
[2023-12-10 03:00] LABS: HEMATOCRIT 41.8 % (32.4-45.2); HEMOGLOBIN 14.3 GM/dL (10.7-15.3); MCH 30.6 pg (25.7-33.7); MCHC 34.2 g/dl (32.0-36.0); MEAN CELL VOLUME 89.3 fl (80-96); MEAN PLT VOLUME 8.5 fl (7.5-11.1); PLATELET COUNT 286 10^3/uL (134-434); RBC 4.68 M/mm3 (3.60-5.2); RDW 13.5 % (11.6-15.6); WHITE BLOOD COUNT 12.4 K/mm3 (4.0-10.0)
[2023-12-10 03:32] LABS: POTASSIUM 3.3 mmol/L (3.5-5.1)
[2023-12-10 03:34] LABS: CALCIUM 9.6 mg/dL (8.5-10.1)
[2023-12-10 03:35] LABS: ALBUMIN 4.1 g/dl (3.4-5.0); BLOOD UREA NITROGEN 24.2 mg/dL (7-18)
[2023-12-10 03:38] LABS: CREATININE 1.4 mg/dL (0.55-1.3)
[2023-12-10 03:39] LABS: BILIRUBIN,TOTAL 0.4 mg/dL (0.2-1); URINE APPEARANCE CLEAR; URINE BILIRUBIN NEGATIVE (NEGATIVE); URINE COLOR YELLOW; URINE GLUCOSE (UA) NEGATIVE (NEGATIVE); URINE KETONE NEGATIVE (NEGATIVE); URINE LEUK ESTERASE NEGATIVE (NEGATIVE); URINE NITRITE NEGATIVE (NEGATIVE); URINE PROTEIN TRACE (NEGATIVE); URINE UROBILINOGEN 0.2 mg/dL (0.2-1.0)
[2023-12-10 03:40] LABS: TOT PROT 7.8 g/dl (6.4-8.2)
== END 2023-12-10 05:03 | disposition home or self-care (01) ==
LOC: FER 01:33
DX: N20.0 Calculus of kidney (principal)
CPT/HCPCS: 36415; 74176-TC; 80053; 81003; 85027; 87086; 99284-25